=== PATIENT | female | born 2000 | race Caucasian/White ===

== ENCOUNTER 2018-05-21 20:57 | Inpatient (IN) | payer BC ==
[~2018-05-21] VITALS: Ht 165.1 cm; Wt 104.3 kg
[2018-05-21 20:00] VITALS: BP 126/67
--- NOTE | 2018-05-21 22:00 | NUR ---
PT PLACED ON DROPLET ISOLATION.
[2018-05-21 22:05] LABS: BASOPHILS 0.1 % (0-2); EOSINOPHILS 0.5 % (0-7); HEMATOCRIT 37.2 % (36.0-48.0); IMMATURE GRANULOCYTES 0.4 % (0-5); LYMPHOCYTES 4.3 % (15-50); MCH 30.7 pg (26.0-34.0); MCHC 34.9 g/dL (31.0-37.0); MCV 87.9 fL (80.0-100.0); MEAN PLATELET VOLUME 9.7 fL (7.4-10.4); MONOCYTES 11.1 % (2-11); NEUTROPHILS 83.6 % (40-80); PLATELET COUNT 220 10x3/uL (130-400); RBC 4.23 10x6/uL (4.00-5.40); WBC 9.1 10x3/uL (4.8-10.8)
[2018-05-21 22:07] VITALS: BP 118/57
--- NOTE | 2018-05-21 22:12 | NUR ---
40 OZ WATER PROVIDED AT THIS TIME.
[2018-05-21 22:13] LABS: ALBUMIN 3.7 g/dL (3.4-5.0); ALKALINE PHOSPHATASE 51 U/L (46-116); ALT (SGPT) 19 U/L (10-68); BILIRUBIN - TOTAL 1.48 mg/dL (0.2-1.3); CALC OSMOLALITY 269 mosm/kg (275-300); CALCIUM 8.4 mg/dL (8.5-10.1); CARBON DIOXIDE 20.9 mmol/L (21.0-32.0); CHLORIDE - SERUM 101 mmol/L (98-107); CREATININE - SERUM 0.8 mg/dL (0.6-1.3); GLUCOSE 94 mg/dL (74-106); POTASSIUM - SERUM 3.7 mmol/L (3.5-5.1); PROTEIN - SERUM 7.4 g/dL (6.4-8.2); SODIUM 136 mmol/L (136-145); UREA NITROGEN 8 mg/dL (7-18); eGFR NON AFRICAN AMERICAN > 90 mL/min (90-120)
[2018-05-21 22:17] LABS: HCG URINE POSITIVE (NEGATIVE)
[2018-05-21 22:20] LABS: APPEARANCE CLEAR (CLEAR); COLOR YELLOW (YELLOW)
[2018-05-21 22:20] LABS: APTT 33.8 SECONDS (22.8-39.4); INR 1.07 (0.85-1.17); PROTIME 13.4 SECONDS (11.6-15.0)
[2018-05-21 22:21] LABS: BILIRUBIN NEGATIVE (NEGATIVE); GLUCOSE NEGATIVE (NEGATIVE); KETONE NEGATIVE (NEGATIVE); NITRITE NEGATIVE (NEGATIVE); PROTEIN NEGATIVE (NEGATIVE); UROBILINOGEN NORMAL (NORMAL)
[2018-05-21 22:38] LABS: CKMB 0.4 U/L (0.0-3.6); CREATINE KINASE 59 UL (21-215); HCG - QUANTITATIVE (MATERNAL) 53306 mIU/mL
[2018-05-21 22:39] LABS: TROPONIN-I < 0.017 ng/mL (0.000-0.060)
--- NOTE | 2018-05-21 22:42 | NUR ---
NAUSEA AND VOMITING AT THIS TIME. TAMIFLU IN EMESIS. ADDRESSED WITH DOCTOR AND WILL READMINISTER TAMIFLU AFTER REGLAN.
[2018-05-21 23:10] VITALS: BP 120/61
--- NOTE | 2018-05-21 23:10 | NUR ---
ULTRA SOUND AT BEDSIDE. WILL CONTINUE TO MONITOR.
[2018-05-22] VITALS (7 sets, daily range): BP systolic 104–133; BP diastolic 55–79; BMI 38.3
--- NOTE | 2018-05-22 00:01 | NUR ---
PT EXPERIENCING N&V AT THIS TIME.
--- NOTE | 2018-05-22 00:03 | NUR ---
ATTEMPTED TO CALL REPORT. NURSE IS OFF FLOOR AND WILL BE BACK IN 5 MINUTES TO CALL FOR REPORT. PT STABLE, CALL LIGHT WITHIN REACH, WILL CONTINUE TO MONITOR.
--- NOTE | 2018-05-22 00:10 | NUR ---
REPORT HANDED OFF TO NURSE BOGDAN. PT TO ADMIT TO ROOM 2234. PT STABLE AT THIS TIME. INFORMED BOGDAN THAT PT IS UNABLE TO HOLD DOWN PO RX AT THIS TIME AND UNABLE TO ADMINISTER TYLENOL. INFORMED NURSE THAT ZOFRAN WAS ORDERED Q4 PRN BUT ZOFRAN IS A "USE CAUTIOUSLY" IN OB PT.
--- NOTE | 2018-05-22 01:54 | NUR ---
ASSESSMENT PER ADMIT PACKET. IV PATENT RT AC OF LR BOLUS GOING THEN WILL SALINE LOCK IV. PATIENT PLACED IN DROPLET ISOLATION FOR THE FLU. PATIENT IS ALSO 5-6 WEEKS .
[2018-05-22 05:33] LABS: BASOPHILS 0.2 % (0-2); EOSINOPHILS 0.2 % (0-7); HEMATOCRIT 36.2 % (36.0-48.0); HEMOGLOBIN 12.6 g/dL (12-16); IMMATURE GRANULOCYTES 0.6 % (0-5); LYMPHOCYTES 6.1 % (15-50); MCH 30.7 pg (26.0-34.0); MCHC 34.8 g/dL (31.0-37.0); MCV 88.1 fL (80.0-100.0); MEAN PLATELET VOLUME 10.3 fL (7.4-10.4); MONOCYTES 11.8 % (2-11); NEUTROPHILS 81.1 % (40-80); PLATELET COUNT 221 10x3/uL (130-400); RBC 4.11 10x6/uL (4.00-5.40); WBC 8.3 10x3/uL (4.8-10.8)
[2018-05-22 05:56] LABS: ALBUMIN 3.5 g/dL (3.4-5.0); ALKALINE PHOSPHATASE 42 U/L (46-116); ALT (SGPT) 19 U/L (10-68); CALC OSMOLALITY 267 mosm/kg (275-300); CALCIUM 8.4 mg/dL (8.5-10.1); CHLORIDE - SERUM 102 mmol/L (98-107); CREATININE - SERUM 0.8 mg/dL (0.6-1.3); GLUCOSE 106 mg/dL (74-106); POTASSIUM - SERUM 3.6 mmol/L (3.5-5.1); SODIUM 135 mmol/L (136-145); UREA NITROGEN 6 mg/dL (7-18); eGFR NON AFRICAN AMERICAN > 90 mL/min (90-120)
--- NOTE | 2018-05-22 07:21 | NUR ---
PT IS RESTING IN BED WITH EYES OPEN. SIGNIFICANT OTHER IS LYING IN BED WITH PT. PT DENIES PRESENCE OF PAIN AT THIS TIME. RESPIRATIONS ARE EVEN AND UNLABORED. PT DENIES PRESENCE OF NAUSEA AND VOMITING AT THIS TIME. BED IS IN THE LOWEST POSITION. CALL LIGHT AND BEDSIDE TABLE ARE WITHIN REACH. WILL CONT TO MONITOR.
--- NOTE | 2018-05-22 11:23 | NUR ---
PT IS RESTING IN BED WITH EYES OPEN. RESPIRATIONS ARE EVEN AND UNLABORED. SIGNIFICANT OTHER IS RESTING IN BED WITH PT. PT REPORTS HEADACHE 09/01. WILL ADDRESS. SEE EMAR. PT DENIES FURTHER NEEDS AT THIS TIME. BED IS IN THE LOWEST POSITION. CALL LIGHT AND BEDSIDE TABLE ARE WITHIN REACH. WILL CONT TO MONITOR.
[2018-05-23 04:00] VITALS: BP 126/50
--- NOTE | 2018-05-23 08:23 | NUR ---
SITTING UP RIGHT IN BED, EVEN UNLABORED BREATHING, IV IN RIGHT AC, PATENT, INFUSING FLUIDS AT 125ML/HR. DENIES ANY CURRENT NEEDS OR DISCOMFORTS, BED LOWERED AND LOCKED, CALL LIGHT WITHIN REACH. CPOC
[2018-05-23 08:31] VITALS: BP 118/76
[2018-05-23 12:09] VITALS: BP 119/68
[2018-05-23] MEDS ORDERED: ZPAK PO (13:01)
[2018-05-23] MEDS ORDERED: PROMETHAZINE W473 ML PO (13:01)
[2018-05-23 13:03] VITALS: Ht 165.1 cm; Wt 104.3 kg
[2018-05-23] MEDS ORDERED: TAMIFLU75 MG PO (13:03)
--- NOTE | 2018-05-23 13:33 | NUR ---
SITTING UP RIGHT IN BED, EVEN UNLABORED BREATHING, IV IN LEFT HAND PATENT, INFUSING FLUIDS AT 125ML/HR. DENIES ANY DISCOMFORTS OR NEEDS, BED LOWERED AND LOCKED, CALL LIGHT WITHIN REACH. CPOC
--- NOTE | 2018-05-23 13:59 | NUR ---
I have reviewed this patient and I concur with the Shift Assessment completed by the Licensed Practical Nurse today this shift.
--- NOTE | 2018-05-23 14:47 | NUR ---
DISCHARGE INSTRUCTIONS GIVEN. VERBAL AND HANDOUTS. VERBALIZES UNDERSTANDING. HARD COPY OF PRESCIPTIONS GIVEN. DENIES ANY CONCERNS OR QUESTIONS. IV IN LEFT HAND DISCONTINUED. CATHETER TIP INTACT.
--- NOTE | 2018-05-23 16:09 | MORECARE ---
CASE MANAGEMENT DISCHARGE SUMMARY PATIENT: NUNO LAINEZ UNIT: [id number] ADM DATE: 05/22/18 AGE: 17 : 98 SEX: F ROOM/BED: D.2234 AUTHOR: SANCHEZ ELLISON PHYSICIAN: REFERRING PHYSICIAN: FAYE MO MD DATE OF SERVICE: 05/23/18 Discharge Plan Patient Name: NUNO LAINEZ [facility] [facility] 2000 Planned Disposition: Anticipated Discharge Date: Discharge Date: 05/23/2018 Expected LOS: 0 Initial Reviewer: [email or web address] Initial Review Date: 05/23/2018 Generated: 05/23/18 5:08 pm Patient Name: NUNO LAINEZ Page [id number] at 1609 All edits/amendments must be made on the electronic document DICTATION DATE: 05/23/18 1608 PAINTING MANAGER: OTF 05/23/18 1608 RPT#: [id number] DC DATE:05/23/18 STATUS: DIS IN [facility] [address] [place] [address] END OF REPORT
== END 2018-05-23 15:20 | disposition home or self-care (01) | DRG 831 ==
LOC: D.ER 20:57 → D.MS 22:48 → OBSVTIME 22:48 → D.MS 22:48
PROVIDERS: Family Medicine; ADMIT Obstetrics & Gynecology; ATTEND Obstetrics & Gynecology
DX: O99.511 Diseases of the respiratory system complicating pregnancy, first trimester (principal); J18.9 Pneumonia, unspecified organism; Z3A.12 12 weeks gestation of pregnancy; J11.1 Influenza due to unidentified influenza virus with other respiratory manifestations

== ENCOUNTER 2018-08-30 19:50 | Emergency (ER) | payer BC ==
[~2018-08-30] VITALS: Ht 165.1 cm; Wt 100.0 kg
[~2018-08-30 19:50] MED LIST: PROMETHAZINE W473 ML PO; TAMIFLU75 MG PO; ZPAK PO
[2018-08-30 20:14] VITALS: Ht 165.1 cm; Wt 100.0 kg
[2018-08-30 20:34] LABS: BASOPHILS 0.1 % (0-2); EOSINOPHILS 1.4 % (0-7); HEMATOCRIT 36.7 % (36.0-48.0); HEMOGLOBIN 12.3 g/dL (12-16); IMMATURE GRANULOCYTES 1.1 % (0-5); LYMPHOCYTES 13.8 % (15-50); MCH 30.9 pg (26.0-34.0); MCHC 33.5 g/dL (31.0-37.0); MCV 92.2 fL (80.0-100.0); MEAN PLATELET VOLUME 9.9 fL (7.4-10.4); MONOCYTES 8.3 % (2-11); NEUTROPHILS 75.3 % (40-80); PLATELET COUNT 259 10x3/uL (130-400); RBC 3.98 10x6/uL (4.00-5.40); RDW 13.3 % (11.5-14.5); WBC 15.2 10x3/uL (4.8-10.8)
[2018-08-30 20:54] LABS: ALBUMIN 2.9 g/dL (3.4-5.0); ALKALINE PHOSPHATASE 66 U/L (46-116); ALT (SGPT) 17 U/L (10-68); CALC OSMOLALITY 277 mosm/kg (275-300); CALCIUM 8.6 mg/dL (8.5-10.1); CARBON DIOXIDE 24.8 mmol/L (21.0-32.0); CHLORIDE - SERUM 105 mmol/L (98-107); CREATININE - SERUM 0.7 mg/dL (0.6-1.3); GLUCOSE 118 mg/dL (74-106); POTASSIUM - SERUM 3.8 mmol/L (3.5-5.1); PROTEIN - SERUM 7.1 g/dL (6.4-8.2); SODIUM 139 mmol/L (136-145); UREA NITROGEN 9 mg/dL (7-18); eGFR NON AFRICAN AMERICAN > 90 mL/min (90-120)
[2018-08-30 21:30] LABS: APTT 27.1 SECONDS (22.8-39.4); INR 0.88 (0.85-1.17); PROTIME 11.5 SECONDS (11.6-15.0)
[2018-08-31 00:59] VITALS: BP 107/73
== END 2018-08-31 00:59 | disposition home or self-care (01) ==
LOC: D.ER 19:50
PROVIDERS: Family Medicine
DX: O26.892 Other specified pregnancy related conditions, second trimester (principal); Z3A.26 26 weeks gestation of pregnancy; R22.31 Localized swelling, mass and lump, right upper limb

== ENCOUNTER → 2018-09-11 10:33 | Outpatient (CLI) | payer BC ==
[2018-08-30 20:14] VITALS: BMI 36.6
[2018-09-11 11:36] LABS: ALBUMIN 2.8 g/dL (3.4-5.0); ALKALINE PHOSPHATASE 58 U/L (46-116); ALT (SGPT) 21 U/L (10-68); BILIRUBIN - DIRECT 0.15 mg/dL (0.00-0.30); BILIRUBIN - INDIRECT 0.79 mg/dL (0.00-1.00); BILIRUBIN - TOTAL 0.94 mg/dL (0.2-1.3); CALC OSMOLALITY 270 mosm/kg (275-300); CALCIUM 8.5 mg/dL (8.5-10.1); CARBON DIOXIDE 25.7 mmol/L (21.0-32.0); CHLORIDE - SERUM 104 mmol/L (98-107); CREATININE - SERUM 0.7 mg/dL (0.6-1.3); GLUCOSE 89 mg/dL (74-106); POTASSIUM - SERUM 3.8 mmol/L (3.5-5.1); PROTEIN - SERUM 6.6 g/dL (6.4-8.2); SODIUM 137 mmol/L (136-145); UREA NITROGEN 7 mg/dL (7-18); URIC ACID 4.2 mg/dL (2.6-7.2); eGFR NON AFRICAN AMERICAN > 90 mL/min (90-120)
[2018-09-11 11:50] LABS: BASOPHILS 0.1 % (0-2); HEMOGLOBIN 11.2 g/dL (12-16); IMMATURE GRANULOCYTES 1.3 % (0-5); LYMPHOCYTES 15.5 % (15-50); MCH 30.9 pg (26.0-34.0); MCHC 33.9 g/dL (31.0-37.0); MCV 91.2 fL (80.0-100.0); MEAN PLATELET VOLUME 9.8 fL (7.4-10.4); MONOCYTES 7.5 % (2-11); NEUTROPHILS 74.6 % (40-80); PLATELET COUNT 248 10x3/uL (130-400); RBC 3.62 10x6/uL (4.00-5.40); RDW 13.3 % (11.5-14.5); WBC 11.8 10x3/uL (4.8-10.8)
== END | disposition home or self-care (01) ==
LOC: D.LDO 10:33
PROVIDERS: ATTEND Obstetrics & Gynecology
DX: O26.899 Other specified pregnancy related conditions, unspecified trimester (principal); Z3A.00 Weeks of gestation of pregnancy not specified

== ENCOUNTER → 2018-09-29 11:30 | Outpatient (CLI) | payer BC ==
[2018-08-30 20:14] VITALS: BMI 36.6
== END | disposition home or self-care (01) ==
LOC: D.LDO 11:30
PROVIDERS: ATTEND Obstetrics & Gynecology
DX: O16.3 Unspecified maternal hypertension, third trimester (principal); Z3A.30 30 weeks gestation of pregnancy

== ENCOUNTER → 2018-10-16 12:03 | Outpatient (CLI) | payer BC ==
[2018-08-30 20:14] VITALS: BMI 36.6
[2018-10-16 14:26] LABS: BASOPHILS 0.2 % (0-2); EOSINOPHILS 0.8 % (0-7); HEMATOCRIT 33.6 % (36.0-48.0); HEMOGLOBIN 11.4 g/dL (12-16); IMMATURE GRANULOCYTES 1.3 % (0-5); LYMPHOCYTES 14.3 % (15-50); MCH 30.4 pg (26.0-34.0); MCHC 33.9 g/dL (31.0-37.0); MCV 89.6 fL (80.0-100.0); MEAN PLATELET VOLUME 9.8 fL (7.4-10.4); MONOCYTES 5.4 % (2-11); PLATELET COUNT 243 10x3/uL (130-400); RBC 3.75 10x6/uL (4.00-5.40); RDW 13.7 % (11.5-14.5); WBC 13.2 10x3/uL (4.8-10.8)
[2018-10-16 14:40] LABS: ALBUMIN 2.8 g/dL (3.4-5.0); ALKALINE PHOSPHATASE 81 U/L (46-116); ALT (SGPT) 10 U/L (10-68); BILIRUBIN - DIRECT 0.13 mg/dL (0.00-0.30); BILIRUBIN - INDIRECT 0.68 mg/dL (0.00-1.00); BILIRUBIN - TOTAL 0.81 mg/dL (0.2-1.3); CALC OSMOLALITY 273 mosm/kg (275-300); CALCIUM 8.8 mg/dL (8.5-10.1); CARBON DIOXIDE 21.8 mmol/L (21.0-32.0); CHLORIDE - SERUM 104 mmol/L (98-107); CREATININE - SERUM 0.7 mg/dL (0.6-1.3); GLUCOSE 128 mg/dL (74-106); POTASSIUM - SERUM 3.6 mmol/L (3.5-5.1); PROTEIN - SERUM 6.3 g/dL (6.4-8.2); SODIUM 137 mmol/L (136-145); UREA NITROGEN 7 mg/dL (7-18); URIC ACID 4.6 mg/dL (2.6-7.2); eGFR NON AFRICAN AMERICAN > 90 mL/min (90-120)
== END | disposition home or self-care (01) ==
LOC: D.LDO 12:03
PROVIDERS: ATTEND Obstetrics & Gynecology
DX: O16.9 Unspecified maternal hypertension, unspecified trimester (principal)

== ENCOUNTER → 2018-10-22 16:10 | Outpatient (CLI) | payer BC ==
[2018-08-30 20:14] VITALS: BMI 36.6
[2018-10-22 17:13] LABS: BASOPHILS 0.1 % (0-2); HEMATOCRIT 34.3 % (36.0-48.0); HEMOGLOBIN 11.5 g/dL (12-16); IMMATURE GRANULOCYTES 1.7 % (0-5); LYMPHOCYTES 18.6 % (15-50); MCH 30.3 pg (26.0-34.0); MCHC 33.5 g/dL (31.0-37.0); MCV 90.5 fL (80.0-100.0); MEAN PLATELET VOLUME 9.8 fL (7.4-10.4); MONOCYTES 8.7 % (2-11); NEUTROPHILS 69.9 % (40-80); PLATELET COUNT 244 10x3/uL (130-400); RBC 3.79 10x6/uL (4.00-5.40); RDW 13.8 % (11.5-14.5); WBC 12.8 10x3/uL (4.8-10.8)
[2018-10-22 17:35] LABS: ALBUMIN 2.8 g/dL (3.4-5.0); ALKALINE PHOSPHATASE 82 U/L (46-116); ALT (SGPT) 11 U/L (10-68); BILIRUBIN - DIRECT 0.19 mg/dL (0.00-0.30); BILIRUBIN - INDIRECT 0.78 mg/dL (0.00-1.00); BILIRUBIN - TOTAL 0.97 mg/dL (0.2-1.3); CALC OSMOLALITY 266 mosm/kg (275-300); CALCIUM 8.5 mg/dL (8.5-10.1); CARBON DIOXIDE 22.8 mmol/L (21.0-32.0); CHLORIDE - SERUM 102 mmol/L (98-107); CREATININE - SERUM 0.7 mg/dL (0.6-1.3); POTASSIUM - SERUM 4.2 mmol/L (3.5-5.1); PROTEIN - SERUM 6.5 g/dL (6.4-8.2); SODIUM 135 mmol/L (136-145); UREA NITROGEN 7 mg/dL (7-18); URIC ACID 4.3 mg/dL (2.6-7.2); eGFR NON AFRICAN AMERICAN > 90 mL/min (90-120)
[2018-10-22 17:44] LABS: GLUCOSE 73 mg/dL (74-106)
== END | disposition home or self-care (01) ==
LOC: D.LDO 16:10
PROVIDERS: ATTEND Obstetrics & Gynecology
DX: O16.9 Unspecified maternal hypertension, unspecified trimester (principal)

== ENCOUNTER → 2018-10-25 10:55 | Outpatient (CLI) | payer BC ==
[2018-08-30 20:14] VITALS: BMI 36.6
== END | disposition home or self-care (01) ==
LOC: D.LDO 10:55
PROVIDERS: ATTEND Obstetrics & Gynecology
DX: O10.913 Unspecified pre-existing hypertension complicating pregnancy, third trimester (principal); Z3A.34 34 weeks gestation of pregnancy

== ENCOUNTER → 2018-10-27 23:01 | Outpatient (CLI) | payer BC ==
[2018-08-30 20:14] VITALS: BMI 36.6
== END | disposition home or self-care (01) ==
LOC: D.LDO 23:01
PROVIDERS: ATTEND Obstetrics & Gynecology
DX: O16.9 Unspecified maternal hypertension, unspecified trimester (principal)

== ENCOUNTER → 2018-11-06 12:22 | Outpatient (CLI) | payer BC ==
[2018-08-30 20:14] VITALS: BMI 36.6
== END | disposition home or self-care (01) ==
LOC: D.LDO 12:22
PROVIDERS: ATTEND Obstetrics & Gynecology
DX: O16.3 Unspecified maternal hypertension, third trimester (principal); Z3A.36 36 weeks gestation of pregnancy

== ENCOUNTER 2018-11-11 20:03 | Outpatient (CLI) | payer BC ==
[2018-08-30 20:14] VITALS: BMI 36.6
== END 2018-11-11 20:57 ==
LOC: D.LDO 20:03
PROVIDERS: ATTEND Obstetrics & Gynecology
DX: O26.893 Other specified pregnancy related conditions, third trimester (principal); Z3A.36 36 weeks gestation of pregnancy

== ENCOUNTER → 2018-11-14 15:22 | Outpatient (CLI) | payer BC ==
[2018-08-30 20:14] VITALS: BMI 36.6
== END | disposition home or self-care (01) ==
LOC: D.LDO 15:22
PROVIDERS: ATTEND Obstetrics & Gynecology
DX: O16.3 Unspecified maternal hypertension, third trimester (principal); Z3A.37 37 weeks gestation of pregnancy

== ENCOUNTER 2018-11-14 16:13 | Inpatient (IN) | payer BC, MEDICAID ==
[~2018-11-14] VITALS: Ht 165.1 cm; Wt 112.7 kg
[2018-11-19 06:03] VITALS: BP 124/66; Ht 165.1 cm; Wt 112.7 kg
[2018-11-19 06:43] LABS: HEMATOCRIT 32.9 % (36.0-48.0); HEMOGLOBIN 11.1 g/dL (12-16); MCH 29.4 pg (26.0-34.0); MCHC 33.7 g/dL (31.0-37.0); MCV 87.3 fL (80.0-100.0); MEAN PLATELET VOLUME 9.7 fL (7.4-10.4); RBC 3.77 10x6/uL (4.00-5.40); RDW 14.4 % (11.5-14.5); WBC 11.8 10x3/uL (4.8-10.8)
[2018-11-19 07:09] LABS: APPEARANCE HAZY (CLEAR); BACTERIA MODERATE /hpf (NONE SEEN); BILIRUBIN NEGATIVE (NEGATIVE); CALCIUM OXALATE CRYSTALS OCC /hpf (NONE SEEN); COLOR YELLOW (YELLOW); EPITHELIAL CELLS 0-5 /hpf (0-5); GLUCOSE NEGATIVE (NEGATIVE); KETONE NEGATIVE (NEGATIVE); MUCUS <1+ /lpf (NONE SEEN); NITRITE NEGATIVE (NEGATIVE); PROTEIN NEGATIVE (NEGATIVE); SPECIFIC GRAVITY 1.015 (1.005-1.020); UROBILINOGEN NORMAL (NORMAL)
[2018-11-20] VITALS (10 sets, daily range): BP systolic 124–149; BP diastolic 56–80
[2018-11-20 07:14] LABS: RAPID PLASMA REAGIN Non Reactive (Non Reactive)
--- NOTE | 2018-11-20 13:21 | NUR ---
BABY BOY AT 1314
--- NOTE | 2018-11-20 14:10 | NUR ---
RECEIVED PT FROM VIA BED TO ROOM 1273. BED LOCKED AND PLACED IN LOW POSITION. VSS. PT AWAKE. AAO X 3. HRRR WITHOUT AUDIBLE MURMUR. BBS CLEAR. BS X 4-HYPOACTIVE. ABDOMEN SOFT/NON-DISTENDED. ABDOMINAL DRESSING DRY WITHOUT DRAINAGE. FUNDUS FIRM AT U/U. RUBRA LOCHIA MOD AMT. NO CLOTS EXPRESSED. PERIPADS CHANGED. ICE PACK TO INCISION. FELICIANO TO GRAVITY DRAINING CLEAR, YELLOW URINE. SCDS ON BLE. PUMP ON. PIV OF NS WITH PITOCIN 20 UNITS INFUSING AT 125 ML/HR TO RIGHT HAND. SITE CLEAR. PT STATES INCISIONAL PAIN OF "5" ON 0-10 PAIN SCALE. PT DENIES N/V. INSTRUCTED ON TCDB. DEMONSTRATES UNDERSTANDING.
--- NOTE | 2018-11-20 14:29 | NUR ---
DILAUDID DIVISIONAL STOREKEEPER STARTED ORDERED. PT INSTRUCTED ON MED AND USE OF BUTTON. VERBALIZES UNDERSTANDING.
--- NOTE | 2018-11-20 15:00 | NUR ---
PT ASSISTED WITH . INFANT LATCHES WELL.
--- NOTE | 2018-11-20 16:30 | NUR ---
PT SITTING UP IN BED. HOLDS WITH MUCH WARMTH SHOWN. DENIES NEEDS OR C/O.
--- NOTE | 2018-11-20 17:04 | NUR ---
FELICIANO EMPTIED PER FAMILY MEMBER. STATES IS EDI PROGRAMMER ANALYST. STATES EMPTIED 2700 ML.INSTRUCTED TO INFORM NURSE IF FELICIANO FULL.
--- NOTE | 2018-11-20 18:15 | NUR ---
PT SITTING UP IN BED. VSS. FUNDUS FIRM AT U/U. RUBRA LOCHIA MOD AMT. SMALL CLOT NOTED ON PERIPAD. PERIPAD, CHUX, AND PINK PAD CHANGED. PERICARE DONE. I/O COMPLETED. ABDOMINAL DRESSING DRY WITHOUT DRAINAGE. FRESH ICE PACK TO INCISION. PT STATES INCISIONAL PAIN OF "1" ON 0-10 PAIN SCALE. DENIES NEEDS OR C/O.
[2018-11-20 19:04] LABS: BASOPHILS 0.1 % (0-2); EOSINOPHILS 0.4 % (0-7); HEMATOCRIT 31.4 % (36.0-48.0); HEMOGLOBIN 10.6 g/dL (12-16); IMMATURE GRANULOCYTES 0.4 % (0-5); LYMPHOCYTES 11.2 % (15-50); MCH 29.4 pg (26.0-34.0); MCHC 33.8 g/dL (31.0-37.0); MEAN PLATELET VOLUME 9.6 fL (7.4-10.4); MONOCYTES 8.6 % (2-11); NEUTROPHILS 79.3 % (40-80); RBC 3.61 10x6/uL (4.00-5.40); RDW 14.3 % (11.5-14.5); WBC 14.2 10x3/uL (4.8-10.8)
[2018-11-20 19:08] LABS: PLATELET COUNT 191 10x3/uL (130-400)
--- NOTE | 2018-11-20 19:45 | NUR ---
THIS RN TO BEDSIDE FOR SHIFT ASSESSMENT. PT AA&O X 4. PAIN ASSESSED. PT RATES PAIN AT INCISION 2/10. DESCRIBES A CRAMPING. SHIFT ASSESSMENT COMPLETED. SEE FLOWSHEET. NURSERY NURSE CURRENTLY IN ROOM FOR NB ASSESSMENT AND HELP W/BREATFEEDING. TRASH REMOVED FROM THE ROOM. APPROX 900ML URINE DUMPED FROM FELICIANO CATH AT THIS TIME. PT HAS FRESH ICE WATER. NO NEEDS VOICED AT THIS TIME. SIG OTHER IN ROOM.
--- NOTE | 2018-11-20 21:30 | NUR ---
THIS RN TO BEDSIDEF. PT CURRENTLY HOLDING INFANT. TRANSFERED TO OPEN CRIB. PAIN ASSESSED. PT REPORT PAIN 2/10. PT ENCOURAGED TO PUSH HER CLOTH EXAMINER HAND BUTTON PRIOR TO T/C/D. PT DOES SO. PT REPOSITIONS SELF TO LEFT AND THEN TO RIGHT. REPOSITIONS SELF UP IN BED. PT PERFORMS I.S. X 3 W/GOOD EFFORT. COUGHS X 3 W/POOR EFFORT. ABLE TO CLEAR THROAT. FUNDUS FIRM,U/1, SMALL RUBRA LOCHIA NOTED. PERIPAD CHANGED. FELICIANO CATH IN PLACED DRAINING VIA GRAVITY. APPROX 300ML NOTED IN UROMETER AND DUMPED. CURRENT ICE CAP IS GOOD. PT DENIES NEEDS AT PRESENT. INFANT PLACED BACK IN PT'S ARMS. NURSERY NURSE TO BEDSIDE TO ASSIST W/.
--- NOTE | 2018-11-20 23:00 | NUR ---
ROUNDS MADE. PT AA&O X 4.PAIN AND NEEDS ASSESSED. PT REPORTS PAIN 2/10. DENIES NEEDS AT THIS TIME. [facility] MUG FILLED W/ICE WATER SERVED. PT REPOSITIONS SELF IN BED LOOKING FOR HER PHONE. APPROX 285 ML URINE NOTED IN UROMETER AND DUMPED.
[2018-11-21 00:21] VITALS: BP 125/67
--- NOTE | 2018-11-21 00:21 | NUR ---
ROUNDS MADE. PT CURRENTLY LYING AWAKE IN BED W/ UP IN ARMS. PAIN AND NEEDS ASSESSED. PT DENIES NEEDS AND REPORTS PAIN 04/03. PT PERFORMS I.S. X 3 W/GOOD EFFORT. DUE TO PT HOLDING INFANT, COUGHING NOT DONE, BUT PT CLEARS THROAT X 3. FUNDUS FIRM,U/1, MIDLINE. SMALL RUBRA LOCHIA NOTED. PERIPAD AND TOWEL CHANGED. VITAL SIGNS OBTAINED. SEE FLOWSHEET. BED LOW, SIDE RAILS UP X 2. CALL LIGHT AND PHONE AT PT'S SIDE.
--- NOTE | 2018-11-21 01:00 | NUR ---
ROUNDS MADE. PT AA&O X 4. PAIN ASSESSED. PT REPORTS PAIN 04/03. DENIES NEEDS AT THIS TIME.
[2018-11-21 03:00] VITALS: BP 118/69
--- NOTE | 2018-11-21 03:00 | NUR ---
PT RESTING WITH EYES CLOSED, AROUSES TO SOFT VERBAL STIMULATION, VS OBTAINED, FELICIANO CATH EMPTIED, PUMPS CLEARED, SCD'S ON AND WORKING PROPERLY, TO ROOM VIA OPEN CRIB CART PER THIS RN, FOB ASLEEP ON COUCH
[2018-11-21 04:29] LABS: BASOPHILS 0.1 % (0-2); EOSINOPHILS 1.4 % (0-7); HEMATOCRIT 32.9 % (36.0-48.0); HEMOGLOBIN 10.9 g/dL (12-16); IMMATURE GRANULOCYTES 0.7 % (0-5); LYMPHOCYTES 15.3 % (15-50); MCH 29.1 pg (26.0-34.0); MCHC 33.1 g/dL (31.0-37.0); MCV 87.7 fL (80.0-100.0); MEAN PLATELET VOLUME 9.6 fL (7.4-10.4); MONOCYTES 10.2 % (2-11); NEUTROPHILS 72.3 % (40-80); PLATELET COUNT 197 10x3/uL (130-400); RBC 3.75 10x6/uL (4.00-5.40); RDW 14.4 % (11.5-14.5); WBC 13.3 10x3/uL (4.8-10.8)
--- NOTE | 2018-11-21 04:30 | NUR ---
STUDY COORDINATOR PUMP SOUNDING NEAR END. NEW SYR[address] PLACE.
--- NOTE | 2018-11-21 06:20 | NUR ---
PT AWAKE, PT CLEANED UP WITH WET WARM WASH CLOTHS, LITE-MOD BLEEDING WITH 1 PEA SIZE CLOT NOTED, BLUE CHUX AND GERALDO PAD CHANGED, FRESH ICE PACK TO ABD, PT REQUESTED AND SERVED FRESH H20, PT DENIES FURTHER NEEDS AT THIS TIME, FOB ASLEEP ON COUCH
--- NOTE | 2018-11-21 07:24 | NUR ---
dr. sanches on unit, rounds made. verbal order received to dc zee cath, sl iv, advance diet to regular for breakfast, and pt may be up ad nini, and po pain medication.
--- NOTE | 2018-11-21 07:45 | NUR ---
to pt's room. pt is sitting up in the bed, eating regular diet for breakfast. iv sl at this time, will return after pt eats breakfast to sylvie zee. pt denies all needs at this time.
--- NOTE | 2018-11-21 09:00 | NUR ---
to pt's room, zee cath dc'd intact. pericare done with warm wet washcloths, chux/towels changed. peripads placed. incision noted to be c/d/i, with jf intact. pt denies all other needs at this time. srup x2, call light and phone within reach.
--- NOTE | 2018-11-21 09:15 | NUR ---
to pt's room for am assessment and vs. pt states, "my bed isn't working again, it started doing this last night". will change out beds for pt. pt assisted up to side of bed, gait slow and steady, to bedside sofa, with friend sitting with her. old bed taken out of room, new bed to room. pt assisted back to bed. srup x2, call light and phone within reach. fresh mug of ice water served. pt denies all other needs at this time.
[2018-11-21 09:25] VITALS: BP 131/79
--- NOTE | 2018-11-21 10:30 | NUR ---
pt assisted up to shower, gait steady. pt's mother and sig other remains in room with pt. clean linens/gown/peripads/panties/baby soap, toothbrush/paste and deoderant provided. pt voids into [place] hat prior to getting into shower, 400 ml's emptied out of [place] hat. call light within reach.
--- NOTE | 2018-11-21 14:48 | NUR ---
to pt's room, to adm pain medication. see emar for all meds adm by this rn. pt states "i just got up to pee, but i did not save it like you told me to." pt back to bed, fundus firm, u/2, small rubra lochia. pt requests to have sl out, states "it has too much tape on it". sl dc'd with cath intact. visitors at bedside. pt denies all other needs at this time. sr up x 2, call light and phone within reach.
[2018-11-21 14:50] VITALS: BP 128/58
--- NOTE | 2018-11-21 19:05 | NUR ---
report given to 7 p shift.
[2018-11-21 19:24] VITALS: BP 131/69
--- NOTE | 2018-11-21 19:24 | NUR ---
pt rec'd in bed at this time holding . states pain at insision site is a 3 at this time. lungs clear. bs+. jf to abdomen intact without s/s of infection noted. fundus firm and midline with small lochia noted. u/2. pt reports + flatus and + voids. no odistress ntoed at this time. siderail up for safety. call light in pt reach. l kaycee rn
--- NOTE | 2018-11-21 20:50 | NUR ---
pt rec'd in bed holding infant. no distress noted. no needs voiced at this time. abiodun benoit rn
--- NOTE | 2018-11-21 21:25 | NUR ---
PT UP TO RESTROOM AND VOIDED 300 ML OF SARAH URINE.
--- NOTE | 2018-11-21 22:44 | NUR ---
PT REC'D IN BED AT THIS TIME. HOLDING INFNANT. DENIES NEEDS OR PAIN AT THIS TIME. Kemi ALMONTE RN
[2018-11-21 23:44] VITALS: BP 121/70
--- NOTE | 2018-11-21 23:50 | NUR ---
pt medicated with motrin for incisional pain of 3. will continue to monitor. abiodun benoit rn
[2018-11-22 04:53] VITALS: BP 116/59
--- NOTE | 2018-11-22 04:55 | NUR ---
pt rec'd in bed at this time. resting well denies pain. no needs voiced. abiodun benoit rn
[2018-11-22 07:11] VITALS: BP 132/70
--- NOTE | 2018-11-22 07:11 | NUR ---
VSS, AFEBRILE, RESP EVEN AND UNLABORED, HEART RRR, LUNGS CTAB, ABD SOFT AND APPROPRIATELY TENDER, FUNDUS FIRM AT U/2 AND MIDLINE, LOCHIA RUBRA LIGHT TO MODERATE AMOUNT, DENIES CLOTS, VOIDING WITHOUT DIFFICULTY, REPORTS FLATUS, NO BM YET, SCHMIDT FREELY, NEGATIVE KRISHNA'S SIGN B LE, PEDAL AND POPLITEAL PULSES STRONG AND EQUAL 2+, ENCOURAGED AMBULATION IN HALLS TODAY X3 AND TCDB, BED IN LOW POSITION, BED BRAKES LOCKED, SIDE RAILS UP X2, CALL LIGHT IN EASY REACH, CONTINUE TO MONITOR.
--- NOTE | 2018-11-22 08:02 | NUR ---
ROUNDS COMPLETED, PT REQUESTING PAIN MED FOR PAIN RATED 4/10 ON NUMERIC PAIN SCALE, PRN IBUPROFEN ADMINISTERED, CUP OF ICE WATER PROVIDED, PT AMBULATORY IN ROOM WITH NAD NOTED. INFANT IN ROLLING CRIB ALSO NAD. WILL MONITOR.
--- NOTE | 2018-11-22 09:03 | NUR ---
ROUNDS COMPLETED, PAIN REASSESSMENT -REPORTS NO PAIN AT THIS TIME. HAS BEEN AMBULATORY IN ROOM, FRIENDS AND FAMILY IN ROOM. STATES DESIRE TO HAVE MEDICAL RECORDS COME FINALIZE CERTIFICATE BUT HAS NO IDENTIFICATION REQUIRED FOR SERVICES, FOB TO OBTAIN ID THEN RETURN TO UNIT TO COMPLETE CERTIFICATE FORMS. NO OTHER NEEDS VOICED AT THIS TIME. CONTINUE TO MONITOR.
--- NOTE | 2018-11-22 10:27 | NUR ---
ROUNDS COMPLETED, PT RESTING WITH EYES CLOSED, RESP EVEN AND UNLABORED, NAD NOTED. CONTINUE TO MONITOR. FAMILY/FRIEND AT BS WITH PT.
--- NOTE | 2018-11-22 11:40 | NUR ---
ROUNDS COMPLETED, DENIES NEEDS OR CONCERNS, RESP EVEN AND UNLABORED, CONTINUE TO MONITOR.
--- NOTE | 2018-11-22 12:15 | NUR ---
DR MARTIN TO ROOM, PT NOW REPORTING ABDOMINAL ITCHING WITH NOTED ERYTHEMA TO STRETCH VELÁSQUEZ ON ABDOMEN. DR MARTIN REVIEWED THE NEED TO PHONE CLINIC OR COME BY CLINIC SATURDAY BETWEEN 8 AND 8:30AM FOR STAPLE REMOVAL, PAIN MANAGEMENT, AND USE OF OTC BENADRYL 25-50MG PO EVERY 6 HOURS PRN ITCHING. PROVIDED TOWELS, WASHCLOTHS, AND PERIPADS FOR PT REQUEST FOR SHOWER. NAD NOTED, DENIES NEED FOR PAIN MEDS AT THIS TIME. FAMILY AND SIGNIFICANT OTHER AT BS. CONTINUE TO MONITOR.
--- NOTE | 2018-11-22 12:44 | NUR ---
OOB TO SHOWER, ASSIST PER SIGNIFICANT OTHER, NAD NOTED. WILL MONITOR.
--- NOTE | 2018-11-22 13:08 | NUR ---
pt c/o incisional pain rated 6/10 on numeric pain scale, prn med given with sips water. no other needs voiced at this time. continue to monitor.
--- NOTE | 2018-11-22 13:30 | NUR ---
PT RATES PAIN 3/10 ON NUMERIC PAIN SCALE, DENIES NEED FOR FURTHER PAIN MEDS.
--- NOTE | 2018-11-22 13:35 | NUR ---
PT AND DISCHARGED TO HOME WITH ALL PERSONAL BELONGINGS VIA PRIVATE AUTO. PT DENIES NEEDS/CONCERNS, SMILING, STABLE CONDITION.
--- NOTE | 2018-12-08 13:26 | OP ---
PATIENT NAME: NUNO LAINEZ MEDICAL RECORD: [id number] :[birth year] LOCATION:[facility] D.1273 ADMISSION DATE:11/19/18 SURGEON: JACK TEMPLE MD DATE OF OPERATION: 11/20/2018 PREOPERATIVE DIAGNOSIS: Failed induction of labor at 40 weeks. POSTOPERATIVE DIAGNOSIS: Failed induction of labor at 40 weeks. PROCEDURE: A primary low transverse section. SURGEON: Jack Temple MD ANESTHESIA: Regional via epidural. INTRAVENOUS FLUIDS: Per anesthesia record. ESTIMATED BLOOD LOSS: 1000 cc. FINDINGS: 1. Viable infant. 2. Placenta delivered manually intact, 3-vessel cord noted. 3. Grossly normal adnexa bilaterally. COMPLICATIONS: None apparent. DESCRIPTION OF PROCEDURE: The patient was taken to the operating room where regional anesthesia was achieved without difficulty. The patient was then prepped and draped in normal sterile fashion in the dorsal supine position. SCDs were on and functioning normally. A Zacarias catheter had been placed and was draining freely. At this point, a Pfannenstiel skin incision was made and extended downward to the underlying subcutaneous fat to level of the fascia. The fascia was then excised in the midline and extended bilaterally using the Cruz scissors. The superior and inferior aspects of the fascial incision were then grasped with Krissy clamps times 2, tented upward, and sharply dissected from the underlying rectus muscle using the Cruz scissors and the Bovie cautery. Rectus muscle was then bluntly in midline, peritoneum identified and entered sharply at the superior aspect of the incision using the Metzenbaum scissors. Peritoneal incision was extended bilaterally using the Metzenbaum scissors. A bladder flap was created by excising the anterior leaf of the broad ligament across the lower uterine segment. A bladder blade was then placed into the pelvis and low transverse uterine incision was made using the scalpel and extended using the Pelosi method. The head and body were then delivered atraumatically. The was bulb suctioned upon delivery. Cord was clamped times 2, cut, and the infant was handed to the awaiting nursery team. At this point, the placenta was removed manually intact, 3-vessel cord was noted. Uterus was exteriorized, cleared of all clots and debris and vigorously massaged until a good uterine tone was noted. Uterine incision was repaired with 0 Vicryl in a running locked fashion times 2 with good hemostasis noted. Posterior cul-de-sac was then thoroughly irrigated and uterus was replaced into the pelvis. Anterior cul-de-sac was then thoroughly irrigated and good hemostasis was noted from the uterine incision. Counts were correct times 2 for sponges, needles, and instruments. The fascia was repaired with 0 loop PDS times 1 and the skin repaired with jf. The patient tolerated procedure well, transferred to postanesthesia recovery stable without incident. OPERATIVE REPORT [id number] NUNO LAINEZ TRANSINT:[id number] Voice Confirmation ID: [id number] DOCUMENT ID: [id number] JACK TEMPLE MD at 1326 CC: [id number] DICTATION DATE: 12/05/18 1022 MANAGER PSYCHOLOGY: 12/05/18 1146 DIS IN 11/22/18 [facility] [address] [place] [address]
== END 2018-11-22 13:35 | disposition home or self-care (01) | DRG 788 ==
LOC: D.LD 11-19 05:28
PROVIDERS: ADMIT Obstetrics & Gynecology; ATTEND Obstetrics & Gynecology
PROC: 3E033VJ Introduction of Other Hormone into Peripheral Vein, Percutaneous Approach (ICD-10-PCS; 2018-11-19)
PROC: 10907ZC Drainage of Amniotic Fluid, Therapeutic from Products of Conception, Via Natural or Artificial Opening (ICD-10-PCS; 2018-11-19)
PROC: 10D00Z1 Extraction of Products of Conception, Low, Open Approach (ICD-10-PCS; principal; 2018-11-20 11:00)
DX: O10.92 Unspecified pre-existing hypertension complicating childbirth (principal); Z3A.38 38 weeks gestation of pregnancy; Z37.0 Single live birth; O61.0 Failed medical induction of labor

== ENCOUNTER → 2018-11-17 16:56 | Outpatient (CLI) | payer BC, MEDICAID ==
[2018-08-30 20:14] VITALS: BMI 36.6
[2018-11-17 17:53] LABS: BASOPHILS 0.1 % (0-2); HEMATOCRIT 32.5 % (36.0-48.0); HEMOGLOBIN 10.8 g/dL (12-16); IMMATURE GRANULOCYTES 1.4 % (0-5); LYMPHOCYTES 16.2 % (15-50); MCH 29.1 pg (26.0-34.0); MCHC 33.2 g/dL (31.0-37.0); MCV 87.6 fL (80.0-100.0); MEAN PLATELET VOLUME 9.8 fL (7.4-10.4); MONOCYTES 11.9 % (2-11); NEUTROPHILS 69.4 % (40-80); PLATELET COUNT 214 10x3/uL (130-400); RBC 3.71 10x6/uL (4.00-5.40); RDW 14.2 % (11.5-14.5)
[2018-11-17 18:30] LABS: ALBUMIN 2.6 g/dL (3.4-5.0); ALKALINE PHOSPHATASE 98 U/L (46-116); ALT (SGPT) 11 U/L (10-68); BILIRUBIN - DIRECT 0.15 mg/dL (0.00-0.30); BILIRUBIN - INDIRECT 0.65 mg/dL (0.00-1.00); CALC OSMOLALITY 274 mosm/kg (275-300); CALCIUM 8.6 mg/dL (8.5-10.1); CARBON DIOXIDE 22.3 mmol/L (21.0-32.0); CHLORIDE - SERUM 106 mmol/L (98-107); CREATININE - SERUM 0.6 mg/dL (0.6-1.3); POTASSIUM - SERUM 3.7 mmol/L (3.5-5.1); PROTEIN - SERUM 6.1 g/dL (6.4-8.2); SODIUM 138 mmol/L (136-145); UREA NITROGEN 7 mg/dL (7-18); URIC ACID 4.2 mg/dL (2.6-7.2); eGFR NON AFRICAN AMERICAN > 90 mL/min (90-120)
[2018-11-17 18:32] LABS: GLUCOSE 111 mg/dL (74-106)
== END | disposition home or self-care (01) ==
LOC: D.LDO 16:56
PROVIDERS: Student in an Organized Health Care Education/Training Program; ATTEND Obstetrics & Gynecology
DX: O16.3 Unspecified maternal hypertension, third trimester (principal); Z3A.37 37 weeks gestation of pregnancy

== ENCOUNTER 2018-11-26 20:06 | Emergency (ER) | payer BC, MEDICAID ==
[~2018-11-26] VITALS: Ht 165.1 cm; Wt 109.3 kg
[2018-11-26 20:08] VITALS: Ht 165.1 cm; Wt 109.3 kg
[2018-11-26 20:46] VITALS: BP 144/78
== END 2018-11-26 20:52 | disposition home or self-care (01) ==
LOC: D.ER 20:06
DX: Z48.817 Encounter for surgical aftercare following surgery on the skin and subcutaneous tissue (principal)

== ENCOUNTER 2019-08-01 15:49 | Emergency (ER) | payer BC ==
[~2019-08-01] VITALS: Ht 165.1 cm; Wt 104.5 kg
[2019-08-01 16:00] VITALS: Ht 165.1 cm; Wt 104.5 kg
[2019-08-01] MEDS ORDERED: ERYTHROMYCIN OPT1 GM RIGHT EYE (16:22)
[2019-08-01 16:31] VITALS: BP 115/74
== END 2019-08-01 16:32 | disposition home or self-care (01) ==
LOC: D.ER 15:49
DX: H10.9 Unspecified conjunctivitis (principal)